=== PATIENT | male | born 1960 | race Caucasian/White ===

== ENCOUNTER 2020-02-02 16:19 | Observation (INO) | payer OTHER ==
[~2020-02-02] VITALS: Ht 185.4 cm; Wt 89.1 kg
[2020-02-02 16:53] LABS: BASO % 1 % (0-3); EOS # 0.4 x10^3/uL (0.0-0.7); EOS % 7 % (0-3); HEMATOCRIT 40.9 % (39.0-53.0); HEMOGLOBIN 14.3 g/dL (13.0-17.5); LYMPH % 35 % (24-48); MEAN CORPUSCULAR HEMOGLOBIN 34 pg (25-35); MEAN CORPUSCULAR HGB CONC 35 g/dL (31-37); MEAN CORPUSCULAR VOLUME 97 fL (79-100); MONO # 0.6 x10^3/uL (0.0-1.1); MONO % 11 % (0-9); NEUT # 2.7 x10^3/uL (1.8-7.7); NEUT % 46 % (31-73); PLATELET COUNT 210 x10^3/uL (140-400); RED BLOOD COUNT 4.23 x10^6/uL (4.30-5.70); RED CELL DISTRIBUTION WIDTH 14.1 % (11.5-14.5); WHITE BLOOD COUNT 5.7 x10^3/uL (4.0-11.0)
--- NOTE | 2020-02-02 16:57 | RAD ---
PORTABLE CHEST 1V History: Reason: CHEST PAIN / Spl. Instructions: / History: Comparison: July 24, 2012 Findings: No consolidation or pleural effusion. Normal heart size. No pneumothorax. Impression: 1. No acute cardiopulmonary process. Electronically signed by: Juan C Salinas DO (02/02/2020 4:54 PM) [id number]
[2020-02-02 17:27] LABS: PROTHROMBIN TIME PATIENT 13.6 SEC (11.7-14.0)
[2020-02-02 17:33] LABS: CALCIUM 8.2 mg/dL (8.5-10.1); CREATININE 1.2 mg/dL (0.7-1.3); GFR 61.8; POTASSIUM 4.3 mmol/L (3.5-5.1)
[2020-02-02 17:37] LABS: FREE T4 1.1 ng/dL (0.76-1.46); THYROID STIM HORMONE (TSH) 2.556 uIU/mL (0.358-3.74)
[2020-02-02 17:41] LABS: ALBUMIN 3.3 g/dL (3.4-5.0); ALBUMIN/GLOBULIN RATIO 1.1 (1.0-1.7); MAGNESIUM 2.1 mg/dL (1.8-2.4); TOTAL BILIRUBIN 0.5 mg/dL (0.2-1.0); TOTAL PROTEIN 6.4 g/dL (6.4-8.2)
[2020-02-02] MEDS ORDERED: ONDANSETRON PF 4 MG/2 ML VIAL. IV PRN (17:45)
--- NOTE | 2020-02-02 17:45 | PHYS DOC ---
Past Medical History Past Medical History: High Cholesterol, Hypertension Additional Past Medical Histor: CARDIAC STENTS Past Surgical History: Other Additional Past Surgical Histo: HEMORRHOIDS, CARDIAC STENTS Smoking Status: Current Every Day Smoker Alcohol Use: Rarely General Adult EDM: Chief Complaint: CHEST PAIN HPI: HPI: Patient is a 59 year old male who was brought here by EMS from his family physician clinic due to chest pain and dizziness. Patient said he woke up this morning, feeling dizzy and having chest pressure. Patient called his family doctor for an appointment, his doctor then saw him in the clinic today, noted that he had PVC pattern consistent with bigeminy on the EKG, his heart rate was observed to be dropping down to about 38 beats per minute at one point so EMS were called to take him here for evaluation. Patient has history of coronary di sease, had a stent placed in the past, his senior data mining analyst is Dr. Lemus. Patient denies any cough or fever, no trouble breathing, no recent travel, no recent operation. Review of Systems: Review of Systems: Constitutional: Denies fever or chills. [] Eyes: Denies change in visual acuity. [] HENT: Denies nasal congestion or sore throat. [] Respiratory: Denies cough or shortness of breath. [] Cardiovascular: Positive for chest pain, no edema GI: Denies abdominal pain, nausea, vomiting, bloody stools or diarrhea. [] : Denies dysuria. [] Musculoskeletal: Denies back pain or joint pain. [] Integument: Denies rash. [] Neurologic: Denies headache, focal weakness or sensory changes. Positive for dizziness Endocrine: Denies polyuria or polydipsia. [] Lymphatic: Denies swollen glands. [] Psychiatric: Denies depression or anxiety. [] Heart Score: HEART Score for Chest Pain: HEART Score for Chest Pain Response (Comments) Value History Moderately Suspicious 1 ECG Nonspecific Repolarizatio 1 Age >45 - < 65 1 Risk Factors >3 Risk Factors or Hx CAD 2 Troponin < Normal Limit 0 Total 5 Risk Factors: Risk Factors: DM, Current or recent (<one month) smoker, HTN, HLP, family h istory of CAD, obesity. Risk Scores: Score 0 - 3: 2.5% MACE over next 6 weeks - Discharge Home Score 4 - 6: 20.3% MACE over next 6 weeks - Admit for Clinical Observation Score 7 - 10: 72.7% MACE over next 6 weeks - Early Invasive Strategies Current Medications: Current Medications Medications (Trade) Dose Ordered Sig/Lula Start Time Stop Time Status Last Admin Dose Admin Ondansetron HCl (Zofran) 4 mg PRN Q8HRS PRN 02/02/20 17:45 02/03/20 17:44 UNV Allergies: Allergies: Allergies Coded Allergies Type Severity Reaction Last Updated Verified No Known Drug Allergies 02/02/20 No Physical Exam: PE: Constitutional: Well developed, well nourished, no acute distress, non-toxic appearance. [] HENT: Normocephalic, atraumatic, bilateral external ears normal, oropharynx moist, no oral exudates, nose normal. [] Eyes: PERRLA, EOMI, conjunctiva normal, no discharge. [] Neck: Normal range of motion, no tenderness, supple, no stridor. [] Cardiovascular:Heart rate regular rhythm, no murmur [] Lungs & Thorax: Bilateral breath sounds clear to auscultation [] Abdomen: Bowel sounds normal, soft, no tenderness, no masses, no pulsatile masses. [] Skin: Warm, dry, no erythema, no rash. [] Back: No tenderness, no CVA tenderness. [] Extremities: No tenderness, no cyanosis, no clubbing, ROM intact, no edema. [] Neurologic: Alert and oriented X 3, normal motor function, normal sensory function, no focal deficits noted. [] Psychologic: Affect normal, judgement normal, mood normal. [] Current Patient Data: Labs: Laboratory Tests Test 02/02/20 16:35 02/02/20 17:06 White Blood Count 5.7 x10^3/uL (4.0-11.0) Red Blood Count 4.23 x10^6/uL (4.30-5.70) L Hemoglobin 14.3 g/dL (13.0-17.5) Hematocrit 40.9 % (39.0-53.0) Mean Corpuscular Volume 97 fL (79-100) Mean Corpuscular Hemoglobin 34 pg (25-35) Mean Corpuscular Hemoglobin Concent 35 g/dL (31-37) Red Cell Distribution Width 14.1 % (11.5-14.5) Platelet Count 210 x10^3/uL (140-400) Neutrophils (%) (Auto) 46 % (31-73) Lymphocytes (%) (Auto) 35 % (24-48) Monocytes (%) (Auto) 11 % (0-9) H Eosinophils (%) (Auto) 7 % (0-3) H Basophils (%) (Auto) 1 % (0-3) Neutrophils # (Auto) 2.7 x10^3/uL (1.8-7.7) Lymphocytes # (Auto) 2.0 x10^3/uL (1.0-4.8) Monocytes # (Auto) 0.6 x10^3/uL (0.0-1.1) Eosinophils # (Auto) 0.4 x10^3/uL (0.0-0.7) Basophils # (Auto) 0.0 x10^3/uL (0.0-0.2) Prothrombin Time 13.6 SEC (11.7-14.0) Prothrombin Time INR 1.1 (0.8-1.1) Activated Partial Thromboplast Time 31 SEC (24-38) Sodium Level 142 mmol/L (136-145) Potassium Level 4.3 mmol/L (3.5-5.1) Chloride Level 106 mmol/L (98-107) Carbon Dioxide Level 29 mmol/L (21-32) Anion Gap 7 (6-14) Blood Urea Nitrogen 12 mg/dL (8-26) Creatinine 1.2 mg/dL (0.7-1.3) Estimated GFR (Cockcroft-Gault) 61.8 BUN/Creatinine Ratio 10 (6-20) Glucose Level 89 mg/dL (70-99) Calcium Level 8.2 mg/dL (8.5-10.1) L Magnesium Level Pending Total Bilirubin Pending Aspartate Amino Transferase (AST) Pending Alanine Aminotransferase (ALT) Pending Alkaline Phosphatase Pending Troponin I Quantitative < 0.017 ng/mL (0.000-0.055) Total Protein Pending Albumin Pending Albumin/Globulin Ratio Pending Lipase Pending Laboratory Tests 02/02/20 16:35 Laboratory Tests 02/02/20 17:06 Vital Signs: Vital Signs Date Time Temp Pulse Resp B/P (MAP) Pulse Ox O2 Delivery O2 Flow Rate FiO2 02/02/20 16:19 99.1 56 18 130/76 (94) 99 Room Air 99.1 EKG: EKG: EKG was done at 1627 heart rate 70 bpm, sinus rhythm, ventricular premature complexes bigeminy pattern, no ST segment elevation. Radiology/Procedures: Radiology/Procedures: [][facility] [address] [place] [address] IMAGING REPORT Signed PATIENT: VÍCTOR VALDEZ ACCOUNT: [id number] : 1960 LOCATION: ER AGE: 59 SEX: M EXAM STATUS: REG ER ORD. PHYSICIAN: KEVEN BUI DO REASON: CHEST PAIN PROCEDURE: PORTABLE CHEST 1V PORTABLE CHEST 1V History: Reason: CHEST PAIN / Spl. Instructions: / History: Comparison: July 24, 2012 Findings: No consolidation or pleural effusion. Normal heart size. No pneumothorax. Impression: 1. No acute cardiopulmonary process. Electronically signed by: Juan C Salinas DO (02/02/2020 4:54 PM) [id number] DICTATED and SIGNED BY: JUAN C SALINAS DO DATE: 02/02/20 1654 Course & Med Decision Making: Course & Med Decision Making Pertinent Labs and Imaging studies reviewed. (See chart for details) Patient is a 59-year-old male who was evaluated in the ER due to chest pain with dizziness. He had EKG show bigeminy pattern, with history of coronary disease in the past, will admit him to the hospital for further evaluation and treatment, Dr. GORDON agreed to admit the patient. Dragon Disclaimer: Dragon Disclaimer: This electronic medical record was generated, in whole or in part, using a voice recognition dictation system. Departure Departure Impression: Primary Impression: Chest pain Disposition: ADMITTED INPATIENT Admitting Physician: CLARIBEL (DR. GORDON) Condition: STABLE Referrals: ISELA KENNEY (PCP) Justicifation of Admission Dx: Justifications for Admission: Justification of Admission Dx: N/A KEVEN BUI DO Feb 02, 2020 17:45
--- NOTE | 2020-02-02 20:00 | NUR ---
NAI RN IN ER GAVE REPORT TO CURRENT RN VALUABLES DOCUMENTED VALUABLES IN THE EMR. ASSESSMENT COMPLETD AND HISTORY. LCRN
[2020-02-02 20:02] VITALS: BP 136/76
[2020-02-02] MEDS ORDERED: AMLO5TAB4 PO (20:52)
[2020-02-02] MEDS ORDERED: TAMS0.4C97 PO (20:57)
[2020-02-02] MEDS ORDERED: ASPI325T8 PO (20:57)
[2020-02-02] MEDS ORDERED: METO25TA4 PO (20:57)
[2020-02-02] MEDS ORDERED: ATOR10TA PO (20:57)
[2020-02-02] MEDS ORDERED: FAMO-63 PO (21:03)
[2020-02-02] MEDS ORDERED: FINA5TAB4 PO (21:03)
[2020-02-02] MEDS ORDERED: GABA300C18 PO (21:03)
[2020-02-02] MEDS ORDERED: ALBU2.5V8 IH (21:03)
[2020-02-02] MEDS ORDERED: IBUP200T58 PO (21:03)
--- NOTE | 2020-02-02 21:38 | PDOC1 ---
History and Physical Date of Admission Date of Admission DATE: 02/02/20 TIME: 21:38 Identification/Chief Complaint Chief Complaint chest pain Problems: (1) Chest pain Source Source: Chart review, Patient History of Present Illness History of Present Illness 59 year old mal hx of CAD, s/p PCI stent to RCA in 2012, HTN, HLD, MANSI on CPAP who was brought here by EMS from his family physician clinic due to chest pain and dizziness. Patient said he woke up this morning, feeling dizzy and having chest pressure. Patient called his family doctor for an appointment, his doctor then saw him in the clinic today, noted that he had PVC pattern consistent with bigeminy on the EKG, his heart rate was observed to be dropping down to about 38 beats per minute at one point so EMS were called to take him here for evaluation. patient follows with Dr. Lemus. patient has no other symptoms. admitted for acs rule out. Past Medical History Past Medical History CAD, s/p PCI stent to RCA in 2012, HTN, HLD, MANSI on CPAP Past Surgical History Past Surgical History reviewed and denies Family History Family History reviewed and denies Social History Smoke: No ALCOHOL: none Drugs: None Current Problem List Problem List Problems Medical Problems: (1) Chest pain Status: Acute Current Medications Current Medications Current Medications Ondansetron HCl (Zofran) 4 mg PRN Q8HRS PRN IV NAUSEA/VOMITING; Start 02/02/20 at 17:45; Stop 02/03/20 at 17:44 Active Scripts Active Reported Advil (Ibuprofen) 200 Mg Tablet 400 Mg PO PRN Q4HRS PRN Finasteride 5 Mg Tablet 5 Mg PO DAILY Gabapentin (Gabapentin) 300 Mg Capsule 300 Mg PO PRN TID PRN Proair Hfa Inhaler (Albuterol Sulfate) 8.5 Gm Hfa.aer.ad 2 Puff IH PRN Q4-6HRS PRN 21 Days Pepcid (Famotidine) 20 Mg Tablet 20 Mg PO HS Flomax (Tamsulosin Hcl) 0.4 Mg Cap.er.24h 0.4 Mg PO DAILY Lipitor (Atorvastatin Calcium) 10 Mg Tablet 1 Tab PO DAILY Metoprolol Tartrate 25 Mg Tablet 25 Mg PO DAILY Aspirin 325 Mg Tablet 325 Mg PO DAILY Norvasc (Amlodipine Besylate) 5 Mg Tablet 5 Mg PO DAILY Allergies Allergies: Coded Allergies: No Known Drug Allergies (Unverified , 02/02/20) ROS Review of System CONSTITUTIONAL: No fever or chills EYES: No recent changes SKIN: No rash or itching CARDIOVASCULAR: No chest pain, syncope, palpitations, or edema RESPIRATORY: No SOB or cough GASTROINTESTINAL: No nausea, vomiting or abdominal pain NEUROLOGICAL: No headaches or weakness ENDOCRINE: No cold or heat intolerance GENITOURINARY: No urgency or frequency of urination MUSCULOSKELETAL: No back pain or joint pain LYMPHATICS: No enlarged lymph nodes PSYCHIATRIC: No anxiety or depression Physical Exam Physical Exam GENERAL: No apparent distress. Alert and oriented. HEENT: Head normocephalic, atraumatic. NECK: Supple LUNGS: Clear to auscultation. HEART: RRR, S1, S2 present, pulses intact ABDOMEN: Soft, positive bowel sounds. EXTREMITIES: No cyanosis or edema. NEUROLOGIC: Normal speech, normal tone PSYCHIATRIC: Normal affect, normal mood. SKIN: No ulceration. Vitals Vitals Vital Signs Date Time Temp Pulse Resp B/P (MAP) Pulse Ox O2 Delivery O2 Flow Rate FiO2 02/02/20 20:02 97.7 58 16 136/76 (96) 100 Room Air 97.7 Labs Labs Laboratory Tests Test 02/02/20 16:35 02/02/20 17:06 02/02/20 20:55 White Blood Count 5.7 x10^3/uL (4.0-11.0) Red Blood Count 4.23 x10^6/uL (4.30-5.70) Hemoglobin 14.3 g/dL (13.0-17.5) Hematocrit 40.9 % (39.0-53.0) Mean Corpuscular Volume 97 fL (79-100) Mean Corpuscular Hemoglobin 34 pg (25-35) Mean Corpuscular Hemoglobin Concent 35 g/dL (31-37) Red Cell Distribution Width 14.1 % (11.5-14.5) Platelet Count 210 x10^3/uL (140-400) Neutrophils (%) (Auto) 46 % (31-73) Lymphocytes (%) (Auto) 35 % (24-48) Monocytes (%) (Auto) 11 % (0-9) Eosinophils (%) (Auto) 7 % (0-3) Basophils (%) (Auto) 1 % (0-3) Neutrophils # (Auto) 2.7 x10^3/uL (1.8-7.7) Lymphocytes # (Auto) 2.0 x10^3/uL (1.0-4.8) Monocytes # (Auto) 0.6 x10^3/uL (0.0-1.1) Eosinophils # (Auto) 0.4 x10^3/uL (0.0-0.7) Basophils # (Auto) 0.0 x10^3/uL (0.0-0.2) Prothrombin Time 13.6 SEC (11.7-14.0) Prothromb Time International Ratio 1.1 (0.8-1.1) Activated Partial Thromboplast Time 31 SEC (24-38) Sodium Level 142 mmol/L (136-145) Potassium Level 4.3 mmol/L (3.5-5.1) Chloride Level 106 mmol/L (98-107) Carbon Dioxide Level 29 mmol/L (21-32) Anion Gap 7 (6-14) Blood Urea Nitrogen 12 mg/dL (8-26) Creatinine 1.2 mg/dL (0.7-1.3) Estimated GFR (Cockcroft-Gault) 61.8 BUN/Creatinine Ratio 10 (6-20) Glucose Level 89 mg/dL (70-99) Calcium Level 8.2 mg/dL (8.5-10.1) Magnesium Level 2.1 mg/dL (1.8-2.4) Total Bilirubin 0.5 mg/dL (0.2-1.0) Aspartate Amino Transf (AST/SGOT) 20 U/L (15-37) Alanine Aminotransferase (ALT/SGPT) 30 U/L (16-63) Alkaline Phosphatase 101 U/L (46-116) Troponin I Quantitative < 0.017 ng/mL (0.000-0.055) < 0.017 ng/mL (0.000-0.055) VD-Gfx-X-Type Natriuretic Peptide 572 pg/mL (0-124) Total Protein 6.4 g/dL (6.4-8.2) Albumin 3.3 g/dL (3.4-5.0) Albumin/Globulin Ratio 1.1 (1.0-1.7) Lipase 109 U/L (73-393) Thyroid Stimulating Hormone (TSH) 2.556 uIU/mL (0.358-3.74) Free Thyroxine 1.10 ng/dL (0.76-1.46) Laboratory Tests Test 02/02/20 16:35 02/02/20 17:06 02/02/20 20:55 White Blood Count 5.7 x10^3/uL (4.0-11.0) Red Blood Count 4.23 x10^6/uL (4.30-5.70) Hemoglobin 14.3 g/dL (13.0-17.5) Hematocrit 40.9 % (39.0-53.0) Mean Corpuscular Volume 97 fL (79-100) Mean Corpuscular Hemoglobin 34 pg (25-35) Mean Corpuscular Hemoglobin Concent 35 g/dL (31-37) Red Cell Distribution Width 14.1 % (11.5-14.5) Platelet Count 210 x10^3/uL (140-400) Neutrophils (%) (Auto) 46 % (31-73) Lymphocytes (%) (Auto) 35 % (24-48) Monocytes (%) (Auto) 11 % (0-9) Eosinophils (%) (Auto) 7 % (0-3) Basophils (%) (Auto) 1 % (0-3) Neutrophils # (Auto) 2.7 x10^3/uL (1.8-7.7) Lymphocytes # (Auto) 2.0 x10^3/uL (1.0-4.8) Monocytes # (Auto) 0.6 x10^3/uL (0.0-1.1) Eosinophils # (Auto) 0.4 x10^3/uL (0.0-0.7) Basophils # (Auto) 0.0 x10^3/uL (0.0-0.2) Prothrombin Time 13.6 SEC (11.7-14.0) Prothromb Time International Ratio 1.1 (0.8-1.1) Activated Partial Thromboplast Time 31 SEC (24-38) Sodium Level 142 mmol/L (136-145) Potassium Level 4.3 mmol/L (3.5-5.1) Chloride Level 106 mmol/L (98-107) Carbon Dioxide Level 29 mmol/L (21-32) Anion Gap 7 (6-14) Blood Urea Nitrogen 12 mg/dL (8-26) Creatinine 1.2 mg/dL (0.7-1.3) Estimated GFR (Cockcroft-Gault) 61.8 BUN/Creatinine Ratio 10 (6-20) Glucose Level 89 mg/dL (70-99) Calcium Level 8.2 mg/dL (8.5-10.1) Magnesium Level 2.1 mg/dL (1.8-2.4) Total Bilirubin 0.5 mg/dL (0.2-1.0) Aspartate Amino Transf (AST/SGOT) 20 U/L (15-37) Alanine Aminotransferase (ALT/SGPT) 30 U/L (16-63) Alkaline Phosphatase 101 U/L (46-116) Troponin I Quantitative < 0.017 ng/mL (0.000-0.055) < 0.017 ng/mL (0.000-0.055) HO-Qdo-B-Type Natriuretic Peptide 572 pg/mL (0-124) Total Protein 6.4 g/dL (6.4-8.2) Albumin 3.3 g/dL (3.4-5.0) Albumin/Globulin Ratio 1.1 (1.0-1.7) Lipase 109 U/L (73-393) Thyroid Stimulating Hormone (TSH) 2.556 uIU/mL (0.358-3.74) Free Thyroxine 1.10 ng/dL (0.76-1.46) VTE Prophylaxis Ordered VTE Prophylaxis Devices: Yes VTE Pharmacological Prophylaxi: Yes Assessment/Plan Assessment/Plan ASSESSMENT Dizziness SECONDARY TO BB THERAPY SINUS BRADYCARDIA Chest pain, RULE OUT CT CAD s/p PCI/stent RCA 2012 Hypertension Hyperlipidemia MANSI with CPAP PLAN ADMIT TO [facility] BED TREND TROPONINS CONTINUE HOME MEDS CARDS CONSULT HOLD BB CHECK ECHO DVT PPX: AMBULATORY FULL CODE Justicifation of Admission Dx: Justifications for Admission: Justification of Admission Dx: N/A SHAZIA GORDON MD Feb 02, 2020 21:38
[2020-02-02] MEDS ORDERED: FAMOTIDINE 20 MG TABLET. PO SCH (22:00)
[2020-02-02] MEDS ORDERED: GABAPENTIN 300 MG CAPSULE. PO PRN (22:00)
[2020-02-02 23:52] VITALS: BP 112/52
[2020-02-03 03:44] VITALS: BP 118/76
--- NOTE | 2020-02-03 04:56 | EKG ---
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
--- NOTE | 2020-02-03 04:59 | EKG ---
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
[2020-02-03 06:41] LABS: CHOLESTEROL/HDL RATIO 3.2
[2020-02-03 07:00] VITALS: BP 112/79
[2020-02-03] MEDS ORDERED: ASPIRIN 325 MG TABLET PO SCH (08:00)
--- NOTE | 2020-02-03 08:27 | EKG ---
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
--- NOTE | 2020-02-03 08:39 | PDOC2 ---
CARDIAC CONSULT DATE OF CONSULT Date of Consult DATE: 02/03/20 TIME: 08:31 REASON FOR CONSULT Reason for Consult: Chest pain REFERRING PHYSICIAN Referring Physician: Dr. Mendoza SOURCE Source: Chart review, Patient HISTORY OF PRESENT ILLNESS HISTORY OF PRESENT ILLNESS This is a 59 yo male who presented secondary to dizziness, bradycardia, and chest pain. Patient reports not feeling well overall yesterday. Was very dizzy. Had slight pain in his central chest. No diaphoresis, palpitations, SOA, or nausea/vomiting. Was bradycardiac upon arrival to the ED with HR in upper 30's. Metoprolol was held and HR has maintained in low 60's. Dizziness has resolved. PAST MEDICAL HISTORY Cardiovascular: CAD, HTN, Hyperlipidemia Pulmonary: Other (MANSI) GI: GERD Musculoskeletal: Osteoarthritis Renal/: Benign prostatic enlarg. PAST SURGICAL HISTORY Past Surgical History: Other (Vasectomy, TURP, lumbar laminectomy ) FAMILY HISTORY Family History: Hypertension SOCIAL HISTORY Smoke: 1 pack per day ALCOHOL: occassional Drugs: None Lives: Alone CURRENT MEDICATIONS CURRENT MEDICATIONS Current Medications Medications (Trade) Dose Ordered Sig/Lula Route PRN Reason Start Time Stop Time Status Last Admin Dose Admin Famotidine (Pepcid) 20 mg HS PO 02/02/20 22:00 02/02/20 22:00 ALLERGIES ALLERGIES: Coded Allergies: No Known Drug Allergies (Unverified , 02/02/20) ROS Review of System 14 point ROS conducted with pertinent positives noted above in HPI PHYSICAL EXAM General: Alert, Oriented X3, Cooperative, No acute distress HEENT: Atraumatic, Mucous membr. moist/pink Lungs: Clear to auscultation Heart: Regular rate Abdomen: Soft, No tenderness Extremities: No edema, Normal pulses Neuro: Normal speech, Sensation intact Psych/Mental Status: Mental status NL, Mood NL MUSCULOSKELETAL: Osteoarthritic changes both hands VITALS/I&O VITALS/I&O: Vital Signs Date Time Temp Pulse Resp B/P (MAP) Pulse Ox O2 Delivery O2 Flow Rate FiO2 02/03/20 03:44 97.9 60 16 118/76 (90) 95 Room Air 97.9 I & O 02/02/20 02/02/20 02/03/20 15:00 23:00 07:00 Intake Total 120 ml 1300 ml Output Total 550 ml 800 ml Balance -430 ml 500 ml LABS Lab: Laboratory Tests Test 02/02/20 16:35 02/02/20 17:06 02/02/20 20:55 02/03/20 00:30 White Blood Count 5.7 x10^3/uL (4.0-11.0) Red Blood Count 4.23 x10^6/uL (4.30-5.70) L Hemoglobin 14.3 g/dL (13.0-17.5) Hematocrit 40.9 % (39.0-53.0) Mean Corpuscular Volume 97 fL (79-100) Mean Corpuscular Hemoglobin 34 pg (25-35) Mean Corpuscular Hemoglobin Concent 35 g/dL (31-37) Red Cell Distribution Width 14.1 % (11.5-14.5) Platelet Count 210 x10^3/uL (140-400) Neutrophils (%) (Auto) 46 % (31-73) Lymphocytes (%) (Auto) 35 % (24-48) Monocytes (%) (Auto) 11 % (0-9) H Eosinophils (%) (Auto) 7 % (0-3) H Basophils (%) (Auto) 1 % (0-3) Neutrophils # (Auto) 2.7 x10^3/uL (1.8-7.7) Lymphocytes # (Auto) 2.0 x10^3/uL (1.0-4.8) Monocytes # (Auto) 0.6 x10^3/uL (0.0-1.1) Eosinophils # (Auto) 0.4 x10^3/uL (0.0-0.7) Basophils # (Auto) 0.0 x10^3/uL (0.0-0.2) Prothrombin Time 13.6 SEC (11.7-14.0) Prothrombin Time INR 1.1 (0.8-1.1) Activated Partial Thromboplast Time 31 SEC (24-38) Sodium Level 142 mmol/L (136-145) Potassium Level 4.3 mmol/L (3.5-5.1) Chloride Level 106 mmol/L (98-107) Carbon Dioxide Level 29 mmol/L (21-32) Anion Gap 7 (6-14) Blood Urea Nitrogen 12 mg/dL (8-26) Creatinine 1.2 mg/dL (0.7-1.3) Estimated GFR (Cockcroft-Gault) 61.8 BUN/Creatinine Ratio 10 (6-20) Glucose Level 89 mg/dL (70-99) Calcium Level 8.2 mg/dL (8.5-10.1) L Magnesium Level 2.1 mg/dL (1.8-2.4) Total Bilirubin 0.5 mg/dL (0.2-1.0) Aspartate Amino Transferase (AST) 20 U/L (15-37) Alanine Aminotransferase (ALT) 30 U/L (16-63) Alkaline Phosphatase 101 U/L (46-116) Troponin I Quantitative < 0.017 ng/mL (0.000-0.055) < 0.017 ng/mL (0.000-0.055) < 0.017 ng/mL (0.000-0.055) XU-Flb-S-Type Natriuretic Peptide 572 pg/mL (0-124) H Total Protein 6.4 g/dL (6.4-8.2) Albumin 3.3 g/dL (3.4-5.0) L Albumin/Globulin Ratio 1.1 (1.0-1.7) Lipase 109 U/L (73-393) Thyroid Stimulating Hormone (TSH) 2.556 uIU/mL (0.358-3.74) Free Thyroxine 1.10 ng/dL (0.76-1.46) Test 02/03/20 06:05 Troponin I Quantitative < 0.017 ng/mL (0.000-0.055) Triglycerides Level 50 mg/dL (0-150) Cholesterol Level 82 mg/dL (0-200) LDL Cholesterol, Calculated 46 mg/dL (0-100) VLDL Cholesterol, Calculated 10 mg/dL (0-40) Non-HDL Cholesterol Calculated 56 mg/dL (0-129) HDL Cholesterol 26 mg/dL (40-60) L Cholesterol/HDL Ratio 3.2 Laboratory Tests 02/02/20 16:35 Laboratory Tests 02/02/20 17:06 ASSESSMENT/PLAN ASSESSMENT/PLAN 1. Dizziness; resolved. bradycardic upon arrival to ED 2. Chest pain, atypical. AMI ruled out 3. Sinus bradycardia; BB held. lowest 49 overnight 4. CAD s/p PCI/stent RCA 2012. Clinically stable. 5. Hypertension; controlled 6. Hyperlipidemia; statin 7. MANSI with CPAP Recommendations Resume secondary prevention measures Discontinue metoprolol Echo to assess LV systolic function Outpatient ischemic evaluation and event monitor has been arranged If echo WNL,may discharge from a CV standpoint and f/u in our office with Dr. Ofe Granda as scheduled. TIARA STEVEN APRN Feb 03, 2020 08:39
[2020-02-03] MEDS ORDERED: TAMSULOSIN 0.4 MG CAP.ER.24H. PO SCH (09:00)
[2020-02-03] MEDS ORDERED: METOPROLOL TART IMMED RELEASE 25 MG TABLET. PO SCH (09:00)
[2020-02-03] MEDS ORDERED: amLODIPine BESYLATE 5 MG TABLET PO SCH (09:00)
[2020-02-03] MEDS ORDERED: FINASTERIDE 5 MG TABLET. PO SCH (09:00)
--- NOTE | 2020-02-03 10:56 | NUR ---
SS following for discharge planning. SS reviewed pt chart and discussed with pt RN. Pt is from home and is currently on room air. Cardiology consulted. Discharge plan is to home when ready. SS will continue to follow for discharge planning.
[2020-02-03 11:00] VITALS: BP 121/79
--- NOTE | 2020-02-03 13:55 | CARD ---
MR#: [id number] Date of Study: 02/03/2020 Ordering Physician: SHAZIA GORDON, Referring Physician: SHAZIA GORDON, Tech: Shelly Mohan APPROVED REPORT EXAM: Two-dimensional and M-mode echocardiogram with Doppler and color Doppler. Other Information Quality : AverageHR: 45bpm INDICATION Dizziness and Vertigo Bradycaredia RISK FACTORS Hypertension Diabetes Smoking 2D DIMENSIONS Left Atrium(2D)3.2 (1.6-4.0cm)IVSd1.2 (0.7-1.1cm) Aortic Root(2D)3.3 (2.0-3.7cm)LVDd4.2 (3.9-5.9cm) LVOT Diameter2.2 (1.8-2.4cm)PWd1.1 (0.7-1.1cm) LVDs2.7 (2.5-4.0cm)FS (%) 37.0 % SV54.1 mlLVEF(%)67.3 (>50%) Aortic Valve AoV Peak Armen.103.0cm/sAoV VTI31.8cm AO Peak GR.4.2mmHgLVOT VTI 22.78cm AO Mean GR.4mmHg Mitral Valve MV E Susnncfj42.6cm/sMV E Peak Gr.3mmHg MV DECEL [id number] A Idecfadm12.5cm/s MV E Mean Gr.1mmHgE/A Ratio1.6 TDI Lateral E' P. V10.17cm/sMedial E' P. V8.95cm/s E/Lateral E'8.0E/Medial E'9.1 Pulmonary Vein S1 Tsrioccz85.2cm/sS2 Oloqudbe46.23cm/s D2 Qdmtryyz82.2cm/sPVa [id number] LEFT VENTRICLE The left ventricle is normal size. There is borderline to mild concentric left ventricular hypertroph y. The left ventricular systolic function is normal The Ejection Fraction is 55-60%. There is normal LV segmental wall motion. RIGHT VENTRICLE The right ventricle is normal size. There is normal right ventricular wall thickness. Systolic functi on is borderline reduced. ATRIA The left atrium size is normal. The right atrium size is normal. The interatrial septum is intact wit h no evidence for an atrial septal defect or patent foramen ovale as noted on 2-D or Doppler imaging. AORTIC VALVE The aortic valve is normal in structure and function. Doppler and Color Flow revealed no significant aortic regurgitation. Calculated aortic valve area is 2.61 cm2 with maximum pressure gradient of 9 mm Hg and mean pressure gradient of 5 mmHg. There is no significant aortic valvular stenosis. MITRAL VALVE The mitral valve is normal in structure and function. There is no evidence of mitral valve prolapse. There is no mitral valve stenosis. Doppler and Color-flow revealed trace mitral regurgitation. TRICUSPID VALVE The tricuspid valve is normal in structure and function. Doppler and Color Flow revealed no tricuspid valve regurgitation noted. There is no tricuspid valve stenosis. PULMONIC VALVE The pulmonic valve is not well visualized. Doppler and Color Flow revealed no pulmonic valvular regur gitation. GREAT VESSELS The aortic root is normal in size. The IVC is normal in size and collapses >50% with inspiration. PERICARDIAL EFFUSION There is no evidence of significant pericardial effusion. Critical Notification Critical Value: No <Conclusion> The left ventricular systolic function is normal The Ejection Fraction is 55-60%. There is normal LV segmental wall motion. Trace mitral regurgitation. There is no evidence of significant pericardial effusion. Signed by : Janes Corado, Electronically Approved : 02/03/2020 13:55:10
[2020-02-03 15:00] VITALS: BP 102/51
--- NOTE | 2020-02-03 15:49 | PDOC3 ---
Discharge Summary Visit Information Date of Admission: Feb 02, 2020 Date of Discharge: Feb 03, 2020 Final Diagnosis Problems Medical Problems: (1) Chest pain Status: Acute Brief Hospital Course Allergies Allergies Coded Allergies Type Severity Reaction Last Updated Verified No Known Drug Allergies 02/02/20 No Vital Signs Vital Signs Date Time Temp Pulse Resp B/P (MAP) Pulse Ox O2 Delivery O2 Flow Rate FiO2 02/03/20 11:48 57 112/79 02/03/20 11:00 97.6 18 96 Room Air 97.6 Lab Results GENERAL: No apparent distress. Alert and oriented. HEENT: Head normocephalic, atraumatic. NECK: Supple LUNGS: Clear to auscultation. HEART: RRR, S1, S2 present, pulses intact ABDOMEN: Soft, positive bowel sounds. EXTREMITIES: No cyanosis or edema. NEUROLOGIC: Normal speech, normal tone PSYCHIATRIC: Normal affect, normal mood. SKIN: No ulceration. Laboratory Tests Test 02/02/20 16:35 02/02/20 17:06 02/02/20 20:55 02/03/20 00:30 White Blood Count 5.7 x10^3/uL (4.0-11.0) Red Blood Count 4.23 x10^6/uL (4.30-5.70) Hemoglobin 14.3 g/dL (13.0-17.5) Hematocrit 40.9 % (39.0-53.0) Mean Corpuscular Volume 97 fL (79-100) Mean Corpuscular Hemoglobin 34 pg (25-35) Mean Corpuscular Hemoglobin Concent 35 g/dL (31-37) Red Cell Distribution Width 14.1 % (11.5-14.5) Platelet Count 210 x10^3/uL (140-400) Neutrophils (%) (Auto) 46 % (31-73) Lymphocytes (%) (Auto) 35 % (24-48) Monocytes (%) (Auto) 11 % (0-9) Eosinophils (%) (Auto) 7 % (0-3) Basophils (%) (Auto) 1 % (0-3) Neutrophils # (Auto) 2.7 x10^3/uL (1.8-7.7) Lymphocytes # (Auto) 2.0 x10^3/uL (1.0-4.8) Monocytes # (Auto) 0.6 x10^3/uL (0.0-1.1) Eosinophils # (Auto) 0.4 x10^3/uL (0.0-0.7) Basophils # (Auto) 0.0 x10^3/uL (0.0-0.2) Prothrombin Time 13.6 SEC (11.7-14.0) Prothromb Time International Ratio 1.1 (0.8-1.1) Activated Partial Thromboplast Time 31 SEC (24-38) Sodium Level 142 mmol/L (136-145) Potassium Level 4.3 mmol/L (3.5-5.1) Chloride Level 106 mmol/L (98-107) Carbon Dioxide Level 29 mmol/L (21-32) Anion Gap 7 (6-14) Blood Urea Nitrogen 12 mg/dL (8-26) Creatinine 1.2 mg/dL (0.7-1.3) Estimated GFR (Cockcroft-Gault) 61.8 BUN/Creatinine Ratio 10 (6-20) Glucose Level 89 mg/dL (70-99) Calcium Level 8.2 mg/dL (8.5-10.1) Magnesium Level 2.1 mg/dL (1.8-2.4) Total Bilirubin 0.5 mg/dL (0.2-1.0) Aspartate Amino Transf (AST/SGOT) 20 U/L (15-37) Alanine Aminotransferase (ALT/SGPT) 30 U/L (16-63) Alkaline Phosphatase 101 U/L (46-116) Troponin I Quantitative < 0.017 ng/mL (0.000-0.055) < 0.017 ng/mL (0.000-0.055) < 0.017 ng/mL (0.000-0.055) VK-Ihi-N-Type Natriuretic Peptide 572 pg/mL (0-124) Total Protein 6.4 g/dL (6.4-8.2) Albumin 3.3 g/dL (3.4-5.0) Albumin/Globulin Ratio 1.1 (1.0-1.7) Lipase 109 U/L (73-393) Thyroid Stimulating Hormone (TSH) 2.556 uIU/mL (0.358-3.74) Free Thyroxine 1.10 ng/dL (0.76-1.46) Test 02/03/20 06:05 Troponin I Quantitative < 0.017 ng/mL (0.000-0.055) Triglycerides Level 50 mg/dL (0-150) Cholesterol Level 82 mg/dL (0-200) LDL Cholesterol, Calculated 46 mg/dL (0-100) VLDL Cholesterol, Calculated 10 mg/dL (0-40) Non-HDL Cholesterol Calculated 56 mg/dL (0-129) HDL Cholesterol 26 mg/dL (40-60) Cholesterol/HDL Ratio 3.2 Laboratory Tests Test 02/02/20 16:35 02/02/20 17:06 02/02/20 20:55 02/03/20 00:30 White Blood Count 5.7 x10^3/uL (4.0-11.0) Red Blood Count 4.23 x10^6/uL (4.30-5.70) Hemoglobin 14.3 g/dL (13.0-17.5) Hematocrit 40.9 % (39.0-53.0) Mean Corpuscular Volume 97 fL (79-100) Mean Corpuscular Hemoglobin 34 pg (25-35) Mean Corpuscular Hemoglobin Concent 35 g/dL (31-37) Red Cell Distribution Width 14.1 % (11.5-14.5) Platelet Count 210 x10^3/uL (140-400) Neutrophils (%) (Auto) 46 % (31-73) Lymphocytes (%) (Auto) 35 % (24-48) Monocytes (%) (Auto) 11 % (0-9) Eosinophils (%) (Auto) 7 % (0-3) Basophils (%) (Auto) 1 % (0-3) Neutrophils # (Auto) 2.7 x10^3/uL (1.8-7.7) Lymphocytes # (Auto) 2.0 x10^3/uL (1.0-4.8) Monocytes # (Auto) 0.6 x10^3/uL (0.0-1.1) Eosinophils # (Auto) 0.4 x10^3/uL (0.0-0.7) Basophils # (Auto) 0.0 x10^3/uL (0.0-0.2) Prothrombin Time 13.6 SEC (11.7-14.0) Prothromb Time International Ratio 1.1 (0.8-1.1) Activated Partial Thromboplast Time 31 SEC (24-38) Sodium Level 142 mmol/L (136-145) Potassium Level 4.3 mmol/L (3.5-5.1) Chloride Level 106 mmol/L (98-107) Carbon Dioxide Level 29 mmol/L (21-32) Anion Gap 7 (6-14) Blood Urea Nitrogen 12 mg/dL (8-26) Creatinine 1.2 mg/dL (0.7-1.3) Estimated GFR (Cockcroft-Gault) 61.8 BUN/Creatinine Ratio 10 (6-20) Glucose Level 89 mg/dL (70-99) Calcium Level 8.2 mg/dL (8.5-10.1) Magnesium Level 2.1 mg/dL (1.8-2.4) Total Bilirubin 0.5 mg/dL (0.2-1.0) Aspartate Amino Transf (AST/SGOT) 20 U/L (15-37) Alanine Aminotransferase (ALT/SGPT) 30 U/L (16-63) Alkaline Phosphatase 101 U/L (46-116) Troponin I Quantitative < 0.017 ng/mL (0.000-0.055) < 0.017 ng/mL (0.000-0.055) < 0.017 ng/mL (0.000-0.055) ES-Mfx-J-Type Natriuretic Peptide 572 pg/mL (0-124) Total Protein 6.4 g/dL (6.4-8.2) Albumin 3.3 g/dL (3.4-5.0) Albumin/Globulin Ratio 1.1 (1.0-1.7) Lipase 109 U/L (73-393) Thyroid Stimulating Hormone (TSH) 2.556 uIU/mL (0.358-3.74) Free Thyroxine 1.10 ng/dL (0.76-1.46) Test 02/03/20 06:05 Troponin I Quantitative < 0.017 ng/mL (0.000-0.055) Triglycerides Level 50 mg/dL (0-150) Cholesterol Level 82 mg/dL (0-200) LDL Cholesterol, Calculated 46 mg/dL (0-100) VLDL Cholesterol, Calculated 10 mg/dL (0-40) Non-HDL Cholesterol Calculated 56 mg/dL (0-129) HDL Cholesterol 26 mg/dL (40-60) Cholesterol/HDL Ratio 3.2 Brief Hospital Course 59 year old mal hx of CAD, s/p PCI stent to RCA in 2012, HTN, HLD, MANSI on CPAP who was brought here by EMS from his family physician clinic due to chest pain and dizziness. Patient said he woke up this morning, feeling dizzy and having chest pressure. Patient called his family doctor for an appointment, his doctor then saw him in the clinic today, noted that he had PVC pattern consistent with bigeminy on the EKG, his heart rate was observed to be dropping down to about 38 beats per minute at one point so EMS were called to take him here for evaluation. patient follows with Dr. Lemus. patient has no other symptoms. admitted for acs rule out. ASSESSMENT Dizziness SECONDARY TO BB THERAPY SINUS BRADYCARDIA Chest pain, RULE OUT CA CAD s/p PCI/stent RCA 2012 Hypertension Hyperlipidemia MANSI with CPAP PLAN trops trended and negative. labs unremarkable bradycardia improved off BB hold BB at discharge echo checked and preserved EF cards consulted and will dc as long as cleared by cards resume all other home meds at discharge follow up with cards as outpatient. Discharge Information Condition at Discharge: Improved Disposition/Orders: D/C to Home Scheduled Amlodipine Besylate (Norvasc) 5 Mg Tablet, 5 MG PO DAILY for htn, (Reported) Entered as Reported by: Rachael Hart on 02/02/202051 Last Action: Continued on 02/02/202199 by SHAZIA GORDON MD Aspirin (Aspirin) 325 Mg Tablet, 325 MG PO DAILY for thinner, (Reported) Entered as Reported by: Rachael Hart on 02/02/202056 Last Action: Continued on 02/02/202199 by SHAZIA GORDON MD Atorvastatin Calcium (Lipitor) 10 Mg Tablet, 1 TAB PO DAILY for decrease cholesterol, #30 Ref 5 (Reported) Entered as Reported by: Rachael Hart on 02/02/202056 Last Action: Continued on 02/02/202199 by SHAZIA GORDON MD Famotidine (Pepcid) 20 Mg Tablet, 20 MG PO HS for gerd, (Reported) Entered as Reported by: Rachael Hart on 02/02/202102 Last Action: Continued on 02/02/202199 by SHAZIA GORDON MD Finasteride (Finasteride) 5 Mg Tablet, 5 MG PO DAILY for prn, (Reported) Entered as Reported by: Rachael Hart on 02/02/202102 Last Action: Continued on 02/02/202199 by SHAZIA GORDON MD Metoprolol Tartrate (Metoprolol Tartrate) 25 Mg Tablet, 25 MG PO DAILY for FOR HYPERTENSION, #60 Ref 0 (Reported) Entered as Reported by: Rachael Hart on 02/02/202056 Last Action: Continued on 02/02/202199 by SHAZIA GORDON MD Tamsulosin Hcl (Flomax) 0.4 Mg Cap.er.24h, 0.4 MG PO DAILY for prostrate, (Reported) Entered as Reported by: Rachael Hart on 02/02/202056 Last Action: Continued on 02/02/202199 by SHAZIA GORDON MD Scheduled PRN Albuterol Sulfate (Proair Hfa Inhaler) 8.5 Gm Hfa.aer.ad, 2 PUFF IH PRN Q4-6HRS PRN for wheezing for 21 Days, #1 Ref 0 (Reported) Entered as Reported by: Rachael Hart on 02/02/202102 Last Action: New Order on 02/02/202102 by Rachael Hart Gabapentin (Gabapentin ) 300 Mg Capsule, 300 MG PO PRN TID PRN for PAIN, (Reported) Entered as Reported by: Rachael Hart on 02/02/202102 Last Action: Continued on 02/02/202199 by SHAZIA GORDON MD Ibuprofen (Advil) 200 Mg Tablet, 400 MG PO PRN Q4HRS PRN for PAIN, (Reported) Entered as Reported by: Rachael Hart on 02/02/202102 Last Action: HELD on 02/02/202199 by SHAZIA GORDON MD Justicifation of Admission Dx: Justifications for Admission: Justification of Admission Dx: N/A SHAZIA GORDON MD Feb 03, 2020 15:49
--- NOTE | 2020-02-03 17:13 | NUR ---
Discharge Note: VÍCTOR VALDEZ Discharge instructions and discharge home medications reviewed with Patient and a copy given. All questions have been answered and understanding verbalized. The following instructions and handouts were given: medication list, event monitor Discontinued lines and drains: IV catheter removed intact. tele monitor removed. Patient discharged to [facility] with self care via wheelchair.
[2020-02-03] MEDS ORDERED: ATORVASTATIN CALCIUM 10 MG TABLET. PO SCH (21:00)
[2020-02-03] MEDS ORDERED: ATORVASTATIN CALCIUM 40 MG TABLET. PO SCH (21:00)
== END 2020-02-03 17:16 | disposition home or self-care (01) ==
LOC: ER 16:19 → ED HOLD 17:42 → 2 NORTH 19:23
PROVIDERS: ADMIT Internal Medicine; ATTEND Internal Medicine
DX: R07.89 Other chest pain (principal); R42 Dizziness and giddiness; E78.00 Pure hypercholesterolemia, unspecified; I10 Essential (primary) hypertension; G47.33 Obstructive sleep apnea (adult) (pediatric); E78.5 Hyperlipidemia, unspecified; F17.200 Nicotine dependence, unspecified, uncomplicated; I25.10 Atherosclerotic heart disease of native coronary artery without angina pectoris; Z95.5 Presence of coronary angioplasty implant and graft
CPT/HCPCS: 36415; 71045; 80053; 80061; 83690; 83735; 83880; 84439; 84443; 84484; 85025; 85610; 85730; 93005; 93306; 99285; 99406; G0378; G0379

== ENCOUNTER → 2020-02-25 | Outpatient (CLI) | payer OTHER ==
[2020-02-03 15:00] VITALS: BP 102/51
[~2020-02-25] MED LIST: ALBU2.5V8 IH; AMLO5TAB4 PO; ASPI325T8 PO; ATOR10TA PO; FAMO-63 PO; FINA5TAB4 PO; GABA300C18 PO; IBUP200T58 PO; METO25TA4 PO; REGADENOSON 0.4 MG/5 ML DISP.SYRIN. IV ONE; TAMS0.4C97 PO
--- NOTE | 2020-02-25 13:32 | RAD ---
MR#: [id number] Date of Study: 02/25/2020 Ordering Physician: LONNIE MURO, Referring Physician: PETRA CANNON Tech: Elvira Greenfield RT (R) (N) APPROVED REPORT Test Type: Pharmacological Stress Nurse/Tech: Sven Pierre RN Test Indications: Lightheaded, Irregular heart rate, CAD Cardiac History: Cardiac stent in 2013, See EMR. Medications: See EMR. Medical History: Smoker, DM=diet controlled, See EMR. Resting ECG: SR Resting Heart Rate: 69 bpm Resting Blood Pressure: 109/65mmHg Pretest Chest Pain: No chest pain Nurse/Tech Notes Lungs CTA, Heart tones regular. Consent: The procedure was explained to the patient in lay terms. Informed consent was witnessed. Ariel eout was entered into [employer]. History and Stress Test performed by [facility]. Details Pharmacologic stress testing was performed using 0.4mg per 5ml of regadenoson given intravenously ove r 7-10 seconds. Stress Symptoms Dyspnea POST EXERCISE Reason for Termination: Infusion complete Max HR: 111 bpm Max Blood Pressure: 117/40mmHg Blood Pressure response to exercise: Normal blood pressure response during stress. Chest Pain: No. Arrhythmia: Yes. PVCs ST Change: No. INTERPRETATION Stress EKG Conclusion: Baseline EKG showed sinus rhythm with nonspecific ST depression in inferior le ads. Nondiagnostic changes at peak stress. PVCs without any significant arrhythmias. Imaging Protocol IMAGE PROTOCOL: Rest Tc-99m/stress Tc-99m 1 day Rest: Stress: Viability: Radiopharm.Tc99m EdbjvrqnhEj74h Sestamibi Hlej58eCy 33mCi Duration 13min. 13min. Img Date 02/25/2020 02/25/2020 Inj-Img [id number]. 60min. Rest Admin Site:IV - Right AntecubitalAdministrator:LULA Bhagat Stress Admin Site: IV - Right AntecubitalAdministrator: LULA Bhagat STRESS DATA End Diast. Vol.120.0mlLVEDV index BSA56.0ml End Syst. Vol.43.0mlLVESV index BSA20.0ml Myocardial Kqij863.0gEject. Zwpefuac48.0% Stress Scores Regional WT2.00Summed WT23.00 Regional WM0.00Summed WM5.00 LV Perfusion Scintigraphic images showed small reversible defect involving the inferolateral wall consistent with ischemia. No other fixed or reversible defects seen. Wall Motion Normal left ventricle systolic function with ejection fraction calculated at 56%. LV Perf. Quant 17 Seg. SSS8.00 17 Seg. SRS5.00 17 Seg. SDS3.00 Stress Defect Extent (% LAD)0.00Rest Defect Extent (% LAD)0.60Rev. Defect Extent (% LAD)0.00 Stress Defect Extent (% LCX) 66.30Rest Defect Extent (% LCX)43.80Rev. Defect Extent (% LCX)35.00 Stress Defect Extent (% RCA)1.10Rest Defect Extent (% RCA)1.10Rev. Defect Extent (% RCA)0.00 Stress Defect Extent (% VINI)16.70Rest Defect Extent (% VINI)12.60Rev. Defect Extent (% VINI)6.10 Conclusion 1. Regadenoson cardioisotope stress test showed small amount of inferolateral wall ischemia. 2. Normal left ventricular systolic function with ejection fraction calculated at 56%. 3. Low to intermediate risk for cardiac events. Signed by : Janes Corado, Electronically Approved : 02/25/2020 13:31:30
== END | disposition home or self-care (01) ==
LOC: NM 08:11
PROVIDERS: ATTEND Internal Medicine Cardiovascular Disease
DX: I25.10 Atherosclerotic heart disease of native coronary artery without angina pectoris (principal); E11.9 Type 2 diabetes mellitus without complications; Z87.891 Personal history of nicotine dependence; Z95.5 Presence of coronary angioplasty implant and graft
CPT/HCPCS: 78452; 93017; A9500; J2785